=== PATIENT | male | born 1960 | race African-American/Black ===

== ENCOUNTER 2016-07-26 07:03 | Emergency (ER) | payer SELFPAY ==
[~2016-07-26] VITALS: Ht 172.7 cm; Wt 81.6 kg
[2016-07-26 07:08] VITALS: BP 126/82
[2016-07-26] MEDS ORDERED: IBUPROFEN 600 MG TABLET PO ONE (07:20)
[2016-07-26] MEDS: IBUPROFEN 600 MG TABLET PO ONE (07:24)
== END 2016-07-26 08:39 | disposition home or self-care (01) ==
LOC: ER 07:06
DX: S09.90XA Unspecified injury of head, initial encounter (principal); S50.02XA Contusion of left elbow, initial encounter; V23.4XXA Motorcycle driver injured in collision with car, pick-up truck or van in traffic accident, initial encounter; Y93.89 Activity, other specified; Y92.413 State road as the place of occurrence of the external cause; Y99.8 Other external cause status
CPT/HCPCS: 73080-TC; A4606; Z7610